=== PATIENT | male | born 1960 | race Caucasian/White ===

== ENCOUNTER 2019-10-08 14:12 | Emergency (ER) | payer MEDICARE, MEDICAID, SELFPAY ==
[2019-10-08 14:16] VITALS: BP 161/89; PULSE 76; RESP 18; TEMP 36.7; O2SAT 96; BMI 33.0
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
--- NOTE | 2019-10-08 14:44 | XR_ITS ---
WS: [id number] SHOULDER LEFT TECHNIQUE: 3 views of the left shoulder CLINICAL INFORMATION: trauma COMPARISON: None. FINDINGS: Moderate degenerative arthritis AC joint. Downsloping acromion. Rotator cuff anchor. No evidence of acute fracture dislocation. XR/XR shoulder LT min 2V* [id number] IMPRESSION: Moderate degenerative arthritis. No acute fractures.
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
[2019-10-08] MEDS: tetanus-dipt-pertussis 0.5 mL SDV IM (15:01)
[2019-10-08] MEDS: HYDROcodone-acetaminophen 7.5-325 mg Tablet 1 TAB PO (15:20)
[2019-10-08 15:33] LABS: Basophils % 0.4 %; Eosinophils # 0.1 10^3/uL (0.0-0.8); Eosinophils % 1.2 %; Hematocrit 48.6 % (42.0-52.0); Hemoglobin 16.3 g/dL (11.7-16.6); Lymphocytes # 3.5 10^3/uL (0.8-4.8); Lymphocytes % 33.5 %; Mean Corpuscular HGB Conc 33.5 g/dL (30.0-36.0); Mean Corpuscular Hemoglobin 27.5 pg (28.0-34.0); Mean Platelet Volume 10.6 fL (7.4-10.4); Monocytes # 0.9 10^3/uL (0.2-0.9); Monocytes % 9.1 %; Neutrophils # 5.74 10^3/uL (1.8-7.7); Neutrophils % 55.5 %; Nucleated Red Blood Cells % 0 %; Platelet Count 207 10^3/cmm (130-400); Red Blood Count 5.93 10^6/uL (4.1-5.3); Red Cell Distribution Width 13.6 % (12.1-15.1); White Blood Count 10.3 10^3/uL (4.0-10.0)
[2019-10-08 16:05] LABS: Anion Gap 13.2 (5-19); Blood Urea Nitrogen 11 mg/dL (6-20); Calcium 9.6 mg/dL (8.5-10.5); Carbon Dioxide 31 mmol/L (22-29); Chloride 96 mmol/L (98-107); Glomerular Filtration Rate 86.7 mL/min (90-130); Glucose 150 mg/dL (65-115); Osmolality Calculated 283 mOsm/kg (285-295); Potassium 3.2 mmol/L (3.5-5.1); Sodium 137 mmol/L (136-145)
[2019-10-08] MEDS: neomycin-poly-bacitracin oint 0.9 gm Pkt 1 APPLIC TOPICAL (16:55)
[2019-10-08 16:56] VITALS: BP 121/65; PULSE 73; RESP 18; O2SAT 98
== END 2019-10-08 16:58 | disposition home or self-care (01) ==
PROVIDERS: Emergency Provider Nurse Practitioner Family; PCP Internal Medicine
DX: S80.212A Abrasion, left knee, initial encounter (principal); S80.812A Abrasion, left lower leg, initial encounter; Z79.4 Long term (current) use of insulin; F17.210 Nicotine dependence, cigarettes, uncomplicated; W30.89XA Contact with other specified agricultural machinery, initial encounter; Z23 Encounter for immunization
CPT/HCPCS: 12345; 36415; 73030; 73562; 73590; 73630; 80048; 85025; 90471; 90715; 99282; 99283

== ENCOUNTER → 2020-09-05 13:15 | Outpatient (BNVA) | payer MEDICARE, MEDICAID, SELFPAY | PROVIDERS: PCP Internal Medicine; Visit Provider Podiatrist Foot & Ankle Surgery | DX: M79.673 Pain in unspecified foot (principal); S90.851A Superficial foreign body, right foot, initial encounter; X58.XXXA Exposure to other specified factors, initial encounter; I73.9 Peripheral vascular disease, unspecified; E11.42 Type 2 diabetes mellitus with diabetic polyneuropathy | CPT/HCPCS: 73630 ==

== ENCOUNTER 2020-10-10 07:59 | Outpatient (CLI) | payer MEDICARE, MEDICAID, SELFPAY ==
--- NOTE | 2020-10-10 08:11 | CT_ITS ---
WS: [id number] LDCT LUNG CANCER SCREENING HISTORY: NICOTINE Dependence, cigarettes TECHNIQUE: Axial imaging performed from the apices to 1 cm below the costophrenic angles. Coronal and sagittal reformats are submitted with axial MIP series. All CT scans at [facility] use at least one of these dose optimization techniques: automated exposure control; mA and/or kV adjustment per patient size (includes targeted exams where dose is matched to clinical indication); or iterativ e reconstruction. DLP: 54.58 mGy.cm DIvol: 1.58 mGy COMPARISON: 03/13/2017 Diagnostic quality: Satisfactory Lung Nodules: No nodule, mass or intrabronchial lesion. Lungs: Hyperexpanded lungs from emphysema. Linear areas of atelectasis at the lingula and lung bases. Heart: Normal size heart. Calcification noted on the mitral annular valve plane. No effusion. Other findings: Dense RIGHT hilar and subcarinal calcified lymph nodes. There are artery is dilated t o 3.8 cm. Mild atherosclerosis aorta. CT/CT lung screening [id number] IMPRESSION: LUNG-RADS: 1-Negative FOLLOW UP: 12 Month: Continue annual screening with LDCT OTHER FINDINGS (S MODIFIER): None.
== END 2020-10-10 08:00 | disposition home or self-care (01) ==
LOC: CT 08:03
PROVIDERS: PCP Internal Medicine; Visit Provider Internal Medicine
DX: Z12.2 Encounter for screening for malignant neoplasm of respiratory organs (principal); F17.200 Nicotine dependence, unspecified, uncomplicated
CPT/HCPCS: 71271

== ENCOUNTER → 2021-09-19 07:59 | Outpatient (BNVA) | payer MEDICARE, MEDICAID, SELFPAY | PROVIDERS: PCP Internal Medicine; Visit Provider Podiatrist Foot & Ankle Surgery | DX: E11.42 Type 2 diabetes mellitus with diabetic polyneuropathy (principal); Q82.8 Other specified congenital malformations of skin; L60.3 Nail dystrophy; L84 Corns and callosities; I73.9 Peripheral vascular disease, unspecified; M21.41 Flat foot [pes planus] (acquired), right foot; M21.42 Flat foot [pes planus] (acquired), left foot; Z79.4 Long term (current) use of insulin | CPT/HCPCS: 11721; 17110 ==

== ENCOUNTER → 2022-01-02 08:39 | Outpatient (BNVA) | payer MEDICARE, MEDICAID, SELFPAY | PROVIDERS: PCP Internal Medicine; Visit Provider Podiatrist Foot & Ankle Surgery | DX: E11.8 Type 2 diabetes mellitus with unspecified complications (principal); I73.9 Peripheral vascular disease, unspecified; E11.42 Type 2 diabetes mellitus with diabetic polyneuropathy; L60.3 Nail dystrophy; L84 Corns and callosities; Q82.8 Other specified congenital malformations of skin; Z79.4 Long term (current) use of insulin | CPT/HCPCS: 11721; 17110 ==

== ENCOUNTER 2022-02-09 08:45 | Outpatient (CLI) | payer MEDICARE, MEDICAID, SELFPAY ==
--- NOTE | 2022-02-09 08:50 | CT_ITS ---
WS: [id number] LDCT LUNG CANCER SCREENING HISTORY: NICOTINE DEPENDENCE,CIGARETTES TECHNIQUE: Axial imaging performed from the apices to 1 cm below the costophrenic angles. Coronal and sagittal reformats are submitted with axial MIP series. All CT scans at [facility] use at least one of these dose optimization techniques: automated exposure control; mA and/or kV adjustment per patient size (includes targeted exams where dose is matched to clinical indication); or iterativ e reconstruction. DLP: 81.77 mGy.cm DIvol: Mean CTDIvol: 1.60 (mGy) COMPARISON: 10/10/2020 Diagnostic quality: Satisfactory Lung Nodules: No pulmonary nodules or endobronchial lesions. Lungs: Chronic emphysema and mild dependent changes or scarring at the lung bases. Heart: Normal size heart. Heavy calcification along the mitral annular valve plane. Other findings: Benign heavily calcified hilar lymph nodes. Mild atherosclerotic plaque in the paez ry arteries. Thoracolumbar scoliosis. Mild pulmonary dilatation. CT/CT lung screening [id number] IMPRESSION: LUNG-RADS: 1-Negative FOLLOW UP: 12 Month: Continue annual screening with LDCT OTHER FINDINGS (S MODIFIER): None.
== END 2022-02-09 08:46 | disposition home or self-care (01) ==
LOC: RAD 08:45
PROVIDERS: PCP Internal Medicine; Visit Provider Internal Medicine
DX: Z12.2 Encounter for screening for malignant neoplasm of respiratory organs (principal); F17.210 Nicotine dependence, cigarettes, uncomplicated
CPT/HCPCS: 71271

== ENCOUNTER → 2022-03-13 09:00 | Outpatient (BNVA) | payer MEDICARE, MEDICAID, SELFPAY | PROVIDERS: PCP Internal Medicine; Visit Provider Podiatrist Foot & Ankle Surgery | DX: I73.9 Peripheral vascular disease, unspecified (principal); E11.42 Type 2 diabetes mellitus with diabetic polyneuropathy; L60.3 Nail dystrophy; L84 Corns and callosities; Q82.8 Other specified congenital malformations of skin; Z79.4 Long term (current) use of insulin | CPT/HCPCS: 11721; 17110 ==

== ENCOUNTER → 2022-05-15 14:50 | Outpatient (BNVA) | payer MEDICARE, MEDICAID, SELFPAY | PROVIDERS: PCP Internal Medicine; Visit Provider Podiatrist Foot & Ankle Surgery | DX: I73.9 Peripheral vascular disease, unspecified (principal); E11.42 Type 2 diabetes mellitus with diabetic polyneuropathy; Q82.8 Other specified congenital malformations of skin; Z79.4 Long term (current) use of insulin | CPT/HCPCS: 99213 ==

== ENCOUNTER → 2022-08-14 13:53 | Outpatient (BNVA) | payer MEDICARE, MEDICAID, SELFPAY | PROVIDERS: PCP Internal Medicine; Visit Provider Podiatrist Foot & Ankle Surgery | DX: I73.9 Peripheral vascular disease, unspecified (principal); E11.42 Type 2 diabetes mellitus with diabetic polyneuropathy; L60.3 Nail dystrophy; Q82.8 Other specified congenital malformations of skin; Z79.4 Long term (current) use of insulin | CPT/HCPCS: 11721; 17110 ==

== ENCOUNTER 2022-09-09 15:59 | Emergency (ER) | payer MEDICARE, MEDICAID, SELFPAY ==
[2022-09-09 16:45] VITALS: BP 157/73; PULSE 65; RESP 14; TEMP 36.9; O2SAT 96; BMI 33.0
[2022-09-09 20:17] LABS: Basophils # 0.1 10^3/uL (0.0-0.1); Basophils % 0.5 %; Eosinophils # 0.2 10^3/uL (0.0-0.8); Eosinophils % 1.8 %; Hematocrit 48.2 % (42.0-52.0); Hemoglobin 16.3 g/dL (11.7-16.6); Lymphocytes # 4.1 10^3/uL (0.8-4.8); Lymphocytes % 32.7 %; Mean Corpuscular HGB Conc 33.8 g/dL (30.0-36.0); Mean Corpuscular Hemoglobin 26.8 pg (28.0-34.0); Mean Corpuscular Volume 79.3 fl (80-94); Mean Platelet Volume 10.9 fL (7.4-10.4); Monocytes % 8.1 %; Neutrophils # 7.05 10^3/uL (1.8-7.7); Neutrophils % 56.7 %; Nucleated Red Blood Cells % 0 %; Platelet Count 233 10^3/cmm (130-400); Red Blood Count 6.08 10^6/uL (4.1-5.3); Red Cell Distribution Width 13.2 % (12.1-15.1); White Blood Count 12.4 10^3/uL (4.0-10.0)
[2022-09-09 20:35] LABS: Alanine Aminotransferase 20 U/L (0-41); Albumin Level 3.6 g/dL (3.5-5.2); Alkaline Phosphatase 96 U/L (40-130); Anion Gap 15.4 (5-19); Aspartate Amino Transferase 11 U/L (0-40); Blood Urea Nitrogen 11 mg/dL (8-23); Calcium 9.6 mg/dL (8.5-10.5); Carbon Dioxide 31 mmol/L (22-29); Chloride 92 mmol/L (98-107); Globulin 3.7 g/dL (1.3-4.6); Glomerular Filtration Rate 98.3 mL/min (90-130); Glucose 286 mg/dL (65-115); Osmolality Calculated 290 mOsm/kg (285-295); Potassium 3.4 mmol/L (3.5-5.1); Sodium 135 mmol/L (136-145); Total Bilirubin 0.8 mg/dL (0.15-1.2); Total Protein 7.3 g/dL (6.6-8.7)
--- NOTE | 2022-09-09 20:36 | CTR_ITS ---
PROCEDURE INFORMATION: Exam: CT Abdomen And Pelvis With Contrast Exam date and time: 09/09/2022 9:00 PM Age: 61 years old Clinical indication: Abdominal pain; Generalized; Prior surgery; Surgery date: 6+ months; Surgery type: RT femoral anders; Patient HX: C/O diffuse abd pain with constipation. ; Additional info: Constipation, diffuse abd pain TECHNIQUE: Imaging protocol: Computed tomography of the abdomen and pelvis with contrast. Radiation optimization: All CT scans at this facility use at least one of these dose optimization techniques: automated exposure control; mA and/or kV adjustment per patient size (includes targeted exams where dose is matched to clinical indication); or iterative reconstruction. Contrast material: OMNI 350; Contrast volume: 100 ml; Contrast route: INTRAVENOUS (IV); REPORTING DATA: Count of CT and Cardiac NM exams in prior 12 months: This patient has received [address] and 0 known cardiac nuclear medicine studies in the 12 months prior to the current study. COMPARISON: CT chest abdpel w/*[id number] 03/13/2017 10:40 AM RADIATION DOSE METRICS: Total DLP (mGy-cm): 935.88 FINDINGS: Lungs: Left base atelectasis. Heart: Mitral annulus calcifications. Liver: Focal fatty infiltration in the left liver lobe. Hypodensity in the right lobe is too small to characterize but is most likely a cyst. No suspicious nodule. Gallbladder and bile ducts: Normal. No calcified stones. No ductal dilation. Pancreas: Mild parenchymal edema is suspected in the pancreatic head. The body and tail are normal. No peripancreatic stranding or fluid. Spleen: Normal. No splenomegaly. Adrenal glands: Normal. No mass. Kidneys and ureters: 4.3 cm inhomogenous enhancing mass in the superior anterior left kidney. Bilateral renal cysts, Hounsfield units less than 20. No hydronephrosis or calculus. Stomach and bowel: Unremarkable. No obstruction. No mucosal thickening. Appendix: The appendix is visualized and is normal. Intraperitoneal space: Unremarkable. No free air. No significant fluid collection. Vasculature: Mild arterial calcifications. No aneurysm. Lymph nodes: Unremarkable. No enlarged lymph nodes. Urinary bladder: Mild wall thickening in the urinary bladder is most likely related to nondistention. Reproductive: Coarse calcifications in the prostate. Bones/joints: Degenerative changes and scoliosis of the spine. No acute fracture. No destructive lesion. Intramedullary anders with metal plate and screws in the right femur. Soft tissues: Small fat containing umbilical hernia. CT/CT abdomen pelvis w con* [id number] IMPRESSION: 1. 4.3 cm inhomogenous enhancing left renal mass. This is highly suspicious for renal cell carcinoma. No evidence for renal vein invasion. 2. Possible mild parenchymal edema in the pancreatic head. Mild pancreatitis is not excluded. Clinical correlation recommended. COMMENTS: Consistent with the [employer]'s Incidental Findings Committee white paper (J Am Tobias Radiol 2018): Any incidental renal lesion less than 1 cm or classified as too small to characterize, or any incidental cystic renal lesion characterized as simple-appearing, is likely benign. No follow-up imaging is recommended for these lesions per consensus recommendations based on imaging criteria.
[2022-09-09 20:45] LABS: Lipase 460 U/L (13-60)
--- NOTE | 2022-09-09 20:54 | ED_ITS ---
HPI - Abdominal Pain General: Chief Complaint: Abdominal Pain Stated Complaint: Pain in abdomin Time Seen by Provider: 09/09/22 20:35 History of Present Illness: 61-year-old male patient comes in today with abdominal discomfort, feeling of constipation, nausea with vomiting. Patient states that every time he eats something he becomes sick to his stomach and throws up. Patient is able to hold fluids down. Patient states for the last 3 weeks he has had these persistent symptoms. Patient has had no abdominal surgeries. Patient has a history of COPD, diabetes mellitus, and hypertension. Patient appears nontoxic and in mild pain. Patient reports no blood in vomit or stool. Patient reports no fever. Patient states that he is use mag citrate and a fleets enema for bowel movement which returned water each time. Have some relief in discomfort at that time. Associated Symptoms: Reports constipation, nausea and vomiting; Denies fever(s) Review of Systems General: Reports: 10 or more systems reviewed and unremarkable except in HPI and below Const: Denies: fever(s) Card: Denies: chest pain Resp: Denies: dyspnea GI: Reports: abdominal pain, nausea, vomiting and constipation : Denies: difficulty urinating Musc: Denies: neck pain or back pain Skin/Breast: Denies: rash PFSH ED PFSH: Medical History COPD (chronic obstructive pulmonary disease) Diabetes mellitus Hypertension Family History Other Diabetes Social History Smoking and tobacco status: never smoked Alcohol intake: never Household members: significant other Current occupational status: unemployed and disabled Physical Exam Const: COMMON NORMALS: alert HENMT: COMMON NORMALS: normocephalic HEAD & SCALP: normocephalic Neck/C-Spine: COMMON NORMALS: full ROM Resp: COMMON NORMALS: normal respiratory effort and clear to auscultation bilaterally AUSCULTATION: clear to auscultation bilaterally Cardio: COMMON NORMALS: regular rate and regular rhythm RATE: regular rate RHYTHM: regular rhythm GI: COMMON NORMALS: Soft to palpation AUSCULTATION: Yes normoactive bowel sounds PALPATION: Yes Soft to palpation and Yes Tenderness to palpation present (GI) (Epigastric) : BLADDER/KIDNEY EXAM: Yes CVA tenderness on the right Back/Pelvis: GENERAL BACK: Yes CVA tenderness Extremity: COMMON NORMALS: no pedal edema Neuro: SENSORIUM/ORIENTATION: Yes alert Skin: COMMON NORMALS: turgor normal GENERAL SKIN EXAM: turgor normal Course Vital Signs: Vital signs: Vital Signs Temperature 98.5 F 09/09/22 16:45 Pulse Rate 66 09/09/22 21:59 Respiratory Rate 18 09/09/22 21:59 Blood Pressure 136/75 09/09/22 21:59 Pulse Oximetry 91 09/09/22 21:59 Oxygen Delivery Me thod Room Air 09/09/22 21:16 MDM - Abdominal Pain Medical Decision Making 61-year-old male patient comes in today for complaints of abdominal discomfort and nausea and vomiting when eating food. On exam patient appears nontoxic. Pa tient appears in mild to moderate pain. Abdomen soft with some epigastric tenderness. Bowel sounds are present. Skin is warm and dry. Vital signs are normal except for some mild elevation in blood pressure. Differential diagnosis includes but not limited to gallbladder disease, pancreatitis, bowel obstruction, diabetic gastroparesis, renal calculi, tumor or mass. Laboratory values was remarkable for elevated lipase at 460. Patient's other labs were very similar to prior exam. Patient was given 1 L of IV fluids for concerns of dehydration related to his nausea and vomiting. Patient was also given 100 mcg of fentanyl, 4 mg of ondansetron for his nausea and vomiting and pain. CT of th e abdomen noted some mild edema of the pancreatic head suggesting a mild pancreatitis. There was also a inhomogenous enhancing left renal mass possible suggestion for renal carcinoma. I reviewed this with patient with recommendations for follow-up with primary care regarding the abnormality. I re viewed with patient the recommendations for pancreatitis treatment and need for follow-up or return to the ER. Patient reported understanding and agreed to plan. Patient was discharged free of pain and discomfort and able to tolerate fluids. Lab Data 09/09/22 19:58 09/09/22 19:58 Labs/Radiology: Radiology Impressions Abdomen/Pelvis CT 09/09/22 20:36 IMPRESSION: 1. 4.3 cm inhomogenous enhancing left renal mass. This is highly suspicious for renal cell carcinoma. No evidence for renal vein invasion. 2. Possible mild parenchymal edema in the pancreatic head. Mild pancreatitis is not excluded. Clinical correlation recommended. COMMENTS: Consistent with the [employer]'s Incidental Findings Committee white paper (J Am Tobias Radiol 2018): Any incidental renal lesion less than 1 cm or classified as too small to characterize, or any incidental cystic renal lesion characterized as simple-appearing, is likely benign. No follow-up imaging is recommended for these lesions per consensus recommendations based on imaging criteria. ADDENDUM: 09/09/222136 THIS REPORT CONTAINS FINDINGS THAT MAY BE CRITICAL TO PATIENT CARE. The findings were verbally communicated via telephone conference with BEAU BRANHAM at 9:35 PM CDT on 09/09/2022. The findings were acknowledged and understood. Laboratory Results WBC 12.4 10^3/uL (4.0-10.0) H 09/09/22 19:58 RBC 6.08 10^6/uL (4.1-5.3) H 09/09/22 19:58 Hgb 16.3 g/dL (11.7-16.6) 09/09/22 19:58 Hct 48.2 % (42.0-52.0) 09/09/22 19:58 MCV 79.3 fl (80-94) L 09/09/22 19:58 MCH 26.8 pg (28.0-34.0) L 09/09/22 19:58 MCHC 33.8 g/dL (30.0-36.0) 09/09/22 19:58 RDW 13.2 % (12.1-15.1) 09/09/22 19:58 Plt Count 233 10^3/cmm (130-400) 09/09/22 19:58 MPV 10.9 fL (7.4-10.4) H 09/09/22 19:58 Neut % (Auto) 56.7 % 09/09/22 19:58 Lymph % (Auto) 32.7 % 09/09/22 19:58 [place] % (Auto) 8.1 % 09/09/22 19:58 Eos % (Auto) 1.8 % 09/09/22 19:58 Baso % (Auto) 0.5 % 09/09/22 19:58 Neut # (Auto) 7.05 10^3/uL (1.8-7.7) 09/09/22 19:58 Lymph # (Auto) 4.1 10^3/uL (0.8-4.8) 09/09/22 19:58 [place] # (Auto) 1.0 10^3/uL (0.2-0.9) H 09/09/22 19:58 Eos # (Auto) 0.2 10^3/uL (0.0-0.8) 09/09/22 19:58 Baso # (Auto) 0.1 10^3/uL (0.0-0.1) 09/09/22 19:58 Nucleated RBC % (auto) 0 % 09/09/22 19:58 Nucleated RBCs # 0.0 /100WBC 09/09/22 19:58 Sodium 135 mmol/L (136-145) L 09/09/22 19:58 Potassium 3.4 mmol/L (3.5-5.1) L 09/09/22 19:58 Chloride 92 mmol/L (98-107) L 09/09/22 19:58 Carbon Dioxide 31 mmol/L (22-29) H 09/09/22 19:58 Anion Gap 15.4 (5-19) 09/09/22 19:58 BUN 11 mg/dL (8-23) 09/09/22 19:58 Creatinine 0.8 mg/dL (0.7-1.2) 09/09/22 19:58 GFR Calculation 98.3 mL/min (90-130) 09/09/22 19:58 Glucose 286 mg/dL (65-115) H 09/09/22 19:58 Calculated Osmolality 290 mOsm/kg (285-295) 09/09/22 19:58 Calcium 9.6 mg/dL (8.5-10.5) 09/09/22 19:58 Total Bilirubin 0.8 mg/dL (0.15-1.2) 09/09/22 19:58 AST 11 U/L (0-40) 09/09/22 19:58 ALT 20 U/L (0-41) 09/09/22 19:58 Alkaline Phosphatase 96 U/L (40-130) 09/09/22 19:58 Total Protein 7.3 g/dL (6.6-8.7) 09/09/22 19:58 Albumin 3.6 g/dL (3.5-5.2) 09/09/22 19:58 Globulin 3.7 g/dL (1.3-4.6) 09/09/22 19:58 Triglycerides 151 mg/dL (0-150) H 09/09/22 19:58 Lipase 460 U/L (13-60) H 09/09/22 19:58 Discharge Plan Discharge Patient Disposition: Home Clinical Impression: Abnormal finding on diagnostic imaging of right kidney Acute pancreatitis Qualifiers: Pancreatitis type: idiopathic Acute pancreatitis complication: no infection or necrosis Qualified Code(s): K85.00 - Idiopathic acute pancreatitis without necrosis or infection Condition: Stable Prescriptions: New ondansetron 4 mg tablet,disintegrating 4 mg PO Q8H PRN (Reason: nausea and vomiting) Qty: 12 0RF hydrocodone-acetaminophen 5-325 mg tablet 1 tab PO Q6H PRN (Reason: pain (scale score 7-10)) Qty: 20 0RF No Action hydrocodone-acetaminophen 5-325 mg tablet 1 tab PO Q6H PRN (Reason: Pain) baclofen 20 mg tablet 20 mg PO Q6H PRN (Reason: Pain) amlodipine [Norvasc] 5 mg tablet 5 mg PO DAILY atenolol-chlorthalidone 100-25 mg tablet 1 tab PO DAILY fluticasone propion-salmeterol 100-50 mcg/dose blister with device 1 ea INHALATION BID (DME) diabetic shoes with 3 inserts See Rx Instructions .Route .MEDSUPPLY Qty: 1 0RF Rx Instructions: As directed (DME) Diabetic shoes See Rx Instructions .ROUTE .MEDSUPPLY Qty: 1 0RF Rx Instructions: With 3 pairs of inserts, by [employer] Novolog FlexPen U-100 Insulin 100 unit/mL (3 mL) Insulin Pen See Rx Instructions .ROUTE .COMPLEX Rx Instructions: 5 unit subcutaneously IN THE MORNING/ 8 UNITS subcutaneously IN THE EVENING Tresiba FlexTouch U-100 100 unit/mL (3 mL) Insulin Pen 38 unit SUBCUT DAILY hydrocodone-acetaminophen 5-325 mg tablet 1 tab PO Q8H PRN (Reason: pain) Qty: 14 0RF Discharge Orders: Discharge ED (Routine); Ordered 09/09/22 Ordered By: Beau Branham Referrals: Fariha Hill MD [Primary Care Provider] - Discharge Diet: Advance as tolerated Discharge Activity: Resume usual activity Patient Instructions: Pancreatitis (ED), Opioid Safety, Pain Management Activity Restrictions/Additional Instructions: Follow-up with primary care in 2 to 3 days for recheck. Clear liquid diets until abdominal pain improves. Then increase diet to a bland diet such as bananas, rice, apples, toast, boiled chicken or other bland foods. Follow-up with primary care regarding abnormality of kidney on the CT scan. Return to ER for worsening symptoms such as increasing nausea and vomiting, uncontrolled abdominal pain, blood in vomit or stool or fever greater than 100.4. Coding Level of Care Code ED Cement Sack Breaker for Clinton Herrera
[2022-09-09] MEDS: sodium chloride 0.9% 1,000 ML 999 ML IV (20:56)
[2022-09-09] MEDS: iohexol 350 mg/mL 500 mL Btl (per mL) IV (21:01)
[2022-09-09 21:09] VITALS: RESP 16
[2022-09-09] MEDS: fentaNYL 50 mcg/mL INJ 2mL 100 MCG IVP (21:09)
[2022-09-09] MEDS: metoclopramide 5 mg/mL SDV 2 mL 10 MG IVP (21:09)
[2022-09-09 21:16] VITALS: BP 174/87; PULSE 66; RESP 15; O2SAT 94
[2022-09-09 21:19] LABS: Triglycerides 151 mg/dL (0-150)
[2022-09-09 21:59] VITALS: BP 136/75; PULSE 66; RESP 18; O2SAT 91
--- NOTE | 2022-09-10 09:06 | DCPLANNER ---
commercial center manager had message to speak with patient about scheduling a follow up appointment with primary care. commercial center manager called patient, unable to speak with patient at this time, a voicemail was left for patient to return case finisher phone call.
== END 2022-09-09 22:00 | disposition home or self-care (01) ==
PROVIDERS: Emergency Medicine; Emergency Provider Nurse Practitioner Family; PCP Internal Medicine
DX: K85.00 Idiopathic acute pancreatitis without necrosis or infection (principal); R93.5 Abnormal findings on diagnostic imaging of other abdominal regions, including retroperitoneum; J44.9 Chronic obstructive pulmonary disease, unspecified; E11.9 Type 2 diabetes mellitus without complications; I10 Essential (primary) hypertension
CPT/HCPCS: 36415; 74177; 80053; 83690; 84478; 85025; 96374; 96375; 99285; J2765; J3010; J7030; Q9967

== ENCOUNTER 2022-09-26 08:34 | Outpatient (CLI) | payer MEDICARE, MEDICAID, SELFPAY ==
--- NOTE | 2022-09-26 08:46 | US_ITS ---
WS: [id number] RIGHT UPPER QUADRANT ULTRASOUND HISTORY: RUQ ABDOMINAL PAIN COMPARISON: CT abdomen 09/09/2022 Liver: 20.2 cm in length. Moderately enlarged liver with no bile duct dilatation. Portal Vein: Normal hepatopetal flow with monophasic waveform. Gallbladder: Normally distended gallbladder with no stones or wall thickening. CBD: 0.3 cm Pancreas: Pancreas appears slightly larger and edematous as compared to the recent CT. Correlate for possible progression of acute pancreatitis. Right kidney: 13.7 cm in length. Normal size. Cystic mass superior pole measures 5.3 x 5.3 cm. Aorta and IVC: Unremarkable abdominal aorta and IVC. No ascites. US/US abdomen limited [id number] IMPRESSION: 1. Moderate hepatic enlargement. No mass. 2. Negative gallbladder. 3. Pancreas appears slightly larger and more edematous as compared to the rece nt CT of 09/09/2022. Correlate for possible progression of mild acute pancreatit is previously described. No pseudocyst. 4. RIGHT renal cyst.
== END 2022-09-26 08:35 | disposition home or self-care (01) ==
LOC: RAD 08:37
PROVIDERS: PCP Internal Medicine; Visit Provider Internal Medicine
DX: R10.11 Right upper quadrant pain (principal); R16.0 Hepatomegaly, not elsewhere classified; N28.1 Cyst of kidney, acquired
CPT/HCPCS: 76705

== ENCOUNTER → 2022-10-23 10:15 | Outpatient (BNVA) | payer MEDICARE, MEDICAID, SELFPAY | PROVIDERS: PCP Internal Medicine; Referring Provider Internal Medicine; Visit Provider Surgery | DX: Z12.11 Encounter for screening for malignant neoplasm of colon (principal) | CPT/HCPCS: 99024; 99203 ==

== ENCOUNTER → 2022-12-11 07:41 | Outpatient (BNVA) | payer MEDICARE, MEDICAID, SELFPAY | PROVIDERS: PCP Internal Medicine; Visit Provider Podiatrist Foot & Ankle Surgery | DX: I73.9 Peripheral vascular disease, unspecified (principal); E11.42 Type 2 diabetes mellitus with diabetic polyneuropathy; Q82.8 Other specified congenital malformations of skin; L60.3 Nail dystrophy; Z79.4 Long term (current) use of insulin | CPT/HCPCS: 11721; 17110 ==

== ENCOUNTER 2022-12-14 06:58 | Day surgery (SDC) | payer MEDICARE, MEDICAID, SELFPAY ==
[2022-12-14 07:12] VITALS: BP 126/82; PULSE 61; RESP 18; TEMP 36.4; O2SAT 98; BMI 33.0
[2022-12-14] MEDS: sodium chloride 0.9% 1,000 ML 30 ML IV (07:22)
[2022-12-14 07:24] LABS: Glucose Point of Care 295 mg/dL (70-110)
--- NOTE | 2022-12-14 07:26 | ANES.PREANE2 ---
Pre-Anesthetic Assessment Height/Weight: Height 1.85 m Weight 113.398 kg Temp Pulse Resp BP Pulse Ox O2 Del Method 97.5 F L 61 18 126/82 98 Room Air 12/14/22 07:12 12/14/22 07:12 12/14/22 07:12 12/14/22 07:12 12/14/22 07:12 12/14/22 07:12 Preop Diagnosis: screening Operation Date: 12/14/22 08:00 Proposed Procedures p Colonoscopy 55615,Z12.11(Not Applicable) - Demetris Macias, DO Was Beta Saurav taken within 24 hours: Yes Was Clonidine taken within 24 hours: N/A Last intake: Intake Last Liquid Date 12/13/22 Last Liquid Time 22:00 Last Solid Date 12/12/22 Last Solid Time 18:00 Social Tobacco and No alcohol last cig a few minutes ago pack(s) per day Exam alert, oriented x 3, clear to auscultation bilaterally and regular rate & rhythm Airway Submandibular: within normal limits Cervical ROM: within normal limits Mallampati: Class I Comments: Comments: missing many History/ROS No significant history except as noted Pulmonary Chronic Obstructive Pulmonary Disease smoker CV/HEM Hypertension None reported Hepatic None reported GI Gastroesophageal Reflux Disease Metabolic Diabetes Mellitus [facility] [place] None reported Neuropsych None reported Anesthetic Plan ASA status: 3 Anesthesia: MAC Risk of > 500 ml blood loss (7ml/kg in children): Yes, adequate IV access and fluids planned Medications/Allergies Home Medications Medication Instructions Recorded Confirmed Last Taken Type atenolol 100 mg-chlorthalidone 25 1 tab PO DAILY 06/23/19 12/14/22 12/14/22 05:00 History mg tablet baclofen 20 mg tablet 20 mg PO Q6H PRN Pain 06/23/19 12/14/22 1 Week Ago History ~12/05/22 fluticasone 100 mcg-salmeterol 50 1 ea inhalation BID 06/23/19 12/14/22 12/12/22 History mcg/dose blistr powdr for inhalation hydrocodone 5 mg-acetaminophen 325 1 tab PO Q6H PRN Pain 06/23/19 12/14/22 1 Week Ago History mg tablet ~12/05/22 insulin aspart U-100 100 unit/mL See Rx Instructions .Route .COMPLEX 10/08/19 12/14/22 12/12/22 History (3 mL) subcutaneous pen (Novolog FlexPen U-100 Insulin aspart) insulin degludec 100 unit/mL (3 38 unit SUBCUT DAILY 10/08/19 12/14/22 12/11/22 History mL) subcutaneous pen (Tresiba FlexTouch U-100 insulin) Diabetic shoes #1 ea 06/07/20 12/14/22 Unknown Rx diabetic shoes with 3 inserts #1 ea 04/04/21 12/14/22 Unknown Rx ondansetron 4 mg disintegrating 4 mg PO Q8H PRN nausea and 09/09/22 12/14/22 Unknown Rx tablet vomiting #12 tabs lisinopril 20 mg tablet 20 mg PO DAILY 12/14/22 12/14/22 12/14/22 05:00 History Allergies Allergy/AdvReac Type Severity Reaction Status Date / Time No Known Allergies Allergy Verified 12/14/22 07:12 Current Medications Generic Name Dose Route Start Last Admin Trade Name Freq PRN Reason Stop Dose Admin Sodium Chloride 1,000 mls @ 30 mls/hr 12/14/22 07:00 12/14/22 07:22 Sodium Chloride 0.9% IV 12/15/22 06:59 30 mls/hr .Q24H BLAIR Administration PFSH Anesthesia Medical History COPD (chronic obstructive pulmonary disease) Diabetes mellitus Hypertension Surgical History History of surgery on arm Hx of colonoscopy less than 5 years, found polyps Family History Other Diabetes Social History Smoking and tobacco/nicotine status: never used tobacco/nicotine Alcohol intake: never Household members: significant other Current occupational status: unemployed and disabled Data Anesthesia Cardiac Studies: No Data to Display
--- NOTE | 2022-12-14 08:20 | PM.HP ---
Providers/Chief Complaint Primary Care Provider: Fariha Hill MD Chief Complaint: Z12.11 History of Present Illness Hever Kendrick is a 62 year old male Review of Systems General: Reports: 10 or more systems reviewed and unremarkable except in HPI and below Medications/Allergies Home Medications Medication Instructions Recorded Confirmed Last Taken Type atenolol 100 mg-chlorthalidone 25 1 tab PO DAILY 06/23/19 12/14/22 12/14/22 05:00 History mg tablet baclofen 20 mg tablet 20 mg PO Q6H PRN Pain 06/23/19 12/14/22 1 Week Ago History ~12/05/22 fluticasone 100 mcg-salmeterol 50 1 ea inhalation BID 06/23/19 12/14/22 12/12/22 History mcg/dose blistr powdr for inhalation hydrocodone 5 mg-acetaminophen 325 1 tab PO Q6H PRN Pain 06/23/19 12/14/22 1 Week Ago History mg tablet ~12/05/22 insulin aspart U-100 100 unit/mL See Rx Instructions .Route .COMPLEX 10/08/19 12/14/22 12/12/22 History (3 mL) subcutaneous pen (Novolog FlexPen U-100 Insulin aspart) insulin degludec 100 unit/mL (3 38 unit SUBCUT DAILY 10/08/19 12/14/22 12/11/22 History mL) subcutaneous pen (Tresiba FlexTouch U-100 insulin) Diabetic shoes #1 ea 06/07/20 12/14/22 Unknown Rx diabetic shoes with 3 inserts #1 ea 04/04/21 12/14/22 Unknown Rx ondansetron 4 mg disintegrating 4 mg PO Q8H PRN nausea and 09/09/22 12/14/22 Unknown Rx tablet vomiting #12 tabs lisinopril 20 mg tablet 20 mg PO DAILY 12/14/22 12/14/22 12/14/22 05:00 History Allergies Allergy/AdvReac Type Severity Reaction Status Date / Time No Known Allergies Allergy Verified 12/14/22 07:12 PFSH Acute PFSH: Medical History COPD (chronic obstructive pulmonary disease) Diabetes mellitus Hypertension Surgical History History of surgery on arm Hx of colonoscopy less than 5 years, found polyps Family History Other Diabetes Social History Smoking and tobacco/nicotine status: never used tobacco/nicotine Alcohol intake: never Household members: significant other Current occupational status: unemployed and disabled Vitals/I&O/Wt Last Vital Signs Temp 97.5 F L 12/14/22 07:12 Pulse 61 12/14/22 07:12 Resp 18 12/14/22 07:12 BP 126/82 12/14/22 07:12 Pulse Ox 98 12/14/22 07:12 O2 Del Method Room Air 12/14/22 07:12 Weight last 48 hrs Weight 250 lb A&P Assessment and plan (1) Colon cancer screening: Plan Colonoscopy Attestations Medical Necessity Statement*: Home Coding Level of Care Code Acute Code for Chg Fwd Diagnoses Colon cancer screening Z12.11
[2022-12-14 08:45] VITALS: BP 108/58; PULSE 58; RESP 18; TEMP 36.6; O2SAT 94
--- NOTE | 2022-12-14 08:56 | ANE.PACU2 ---
Inpatient post-anesthesia follow up: Airway intact: Yes Vital signs: Temperature 97.9 F Pulse Rate 58 Respiratory Rate 18 Blood Pressure 108/58 Pulse Oximetry 94 Oxygen Delivery Me thod Room Air Oxygen Flow Rate Fraction of Inspir ed Oxygen Hydration adequate: Yes Nausea and vomiting: No Pain level: 1 Mental status: Baseline
[2022-12-14 08:59] VITALS: BP 120/67; PULSE 58; RESP 18; O2SAT 94
[2022-12-14 09:15] VITALS: BP 125/71; PULSE 60; RESP 18; O2SAT 96
== END 2022-12-14 09:31 | disposition home or self-care (01) ==
PROVIDERS: PCP Internal Medicine; Visit Provider Surgery
PROC: 0DJD8ZZ Inspection of Lower Intestinal Tract, Via Natural or Artificial Opening Endoscopic (ICD-10-PCS; CPT 45378; principal; 2022-12-14 08:00)
DX: Z12.11 Encounter for screening for malignant neoplasm of colon (principal); D12.3 Benign neoplasm of transverse colon; K64.8 Other hemorrhoids; J44.9 Chronic obstructive pulmonary disease, unspecified; E11.9 Type 2 diabetes mellitus without complications; Z79.84 Long term (current) use of oral hypoglycemic drugs; I10 Essential (primary) hypertension; F17.210 Nicotine dependence, cigarettes, uncomplicated; K21.9 Gastro-esophageal reflux disease without esophagitis; Z79.4 Long term (current) use of insulin
CPT/HCPCS: 36416; 45385; 82962; 88305; J2704; J7030

== ENCOUNTER → 2022-12-27 10:44 | Outpatient (BNVA) | payer MEDICARE, MEDICAID, SELFPAY | PROVIDERS: PCP Internal Medicine; Visit Provider Surgery | DX: R22.32 Localized swelling, mass and lump, left upper limb | CPT/HCPCS: 99214 ==

== ENCOUNTER → 2023-01-01 11:38 | Outpatient (BNVA) | payer MEDICARE, MEDICAID, SELFPAY | PROVIDERS: PCP Internal Medicine; Visit Provider Surgery | DX: D17.22 Benign lipomatous neoplasm of skin and subcutaneous tissue of left arm (principal) | CPT/HCPCS: 11400; 88307; 99214 ==

== ENCOUNTER → 2023-01-15 09:48 | Outpatient (BNVA) | payer MEDICARE, MEDICAID, SELFPAY | PROVIDERS: PCP Internal Medicine; Visit Provider Surgery | DX: R22.32 Localized swelling, mass and lump, left upper limb (principal) | CPT/HCPCS: 99213 ==

== ENCOUNTER → 2023-03-19 10:41 | Outpatient (BNVA) | payer MEDICARE, MEDICAID, SELFPAY | PROVIDERS: PCP Internal Medicine; Visit Provider Podiatrist Foot & Ankle Surgery | DX: I73.9 Peripheral vascular disease, unspecified (principal); E11.42 Type 2 diabetes mellitus with diabetic polyneuropathy; Q82.8 Other specified congenital malformations of skin; L60.3 Nail dystrophy; Z79.4 Long term (current) use of insulin | CPT/HCPCS: 11721; 17110 ==

== ENCOUNTER → 2023-06-11 07:50 | Outpatient (BNVA) | payer MEDICARE, MEDICAID, SELFPAY | PROVIDERS: PCP Internal Medicine; Visit Provider Podiatrist Foot & Ankle Surgery | DX: L60.3 Nail dystrophy (principal); I73.9 Peripheral vascular disease, unspecified; E11.42 Type 2 diabetes mellitus with diabetic polyneuropathy; Q82.8 Other specified congenital malformations of skin; Z79.4 Long term (current) use of insulin | CPT/HCPCS: 11721; 17110 ==

== ENCOUNTER 2023-06-12 07:47 | Outpatient (CLI) | payer MEDICARE, MEDICAID, SELFPAY ==
--- NOTE | 2023-06-12 07:54 | CT_ITS ---
WS: [id number] LDCT LUNG CANCER SCREENING HISTORY: HX OF TOBACCO USE TECHNIQUE: Axial imaging performed from the apices to 1 cm below the costophrenic angles. Coronal and sagittal reformats are submitted with axial MIP series. All CT scans at [facility] use at least one of these dose optimization techniques: automated exposure control; mA and/or kV adjustment per patient size (includes targeted exams where dose is matched to clinical indication); or iterativ e reconstruction. DLP: 119.18 mGy.cm DIvol: Mean CTDIvol: 2.70 (mGy) COMPARISON: 02/09/2022 Diagnostic quality: Satisfactory Lungs: Mild pulmonary hyperexpansion and emphysema. No pulmonary mass or nodule. There is a tiny micr onodules subpleural LEFT upper lobe. No endobronchial lesions. Heart: Normal size heart with no pericardial effusion.. Other findings: No adenopathy. Densely calcified RIGHT hilar lymph node is benign. Mild atheroscleros is aorta. No adrenal mass. Superior pole RIGHT renal cyst measures 4.9 cm. There is a new soft tissue mass in the medial LEFT upper abdomen extending along the diaphragmatic pendleton rface in the crura. Inseparable from the spleen. This mass was not present on the prior CT from 2022. Patient does have a known renal cell neoplasm. No history of prior surgery. There is new soft t issue mass is incompletely included on this examination but measures 4.2 x 5.1 cm. IMPRESSION: CT/CT lung screening [id number] LUNG-RADS: 1S-Negative with Significant Findings FOLLOW UP: 12 Month: Continue annual screening with LDCT OTHER FINDINGS (S MODIFIER): New soft tissue mass in the medial LEFT upper abdo men contacting the diaphragm/crura and medial spleen. Patient has a known LEFT renal neoplasm which was described on prior CTs. No history of prior surgery. N ew soft tissue mass may be extension of the known renal cell neoplasm. This sof t tissue mass was not present on the study of 09/09/2022. Consider additional ev aluation, recommend CT abdomen and pelvis with IV and oral contrast. Progressio n of renal neoplasm. No history of surgery provided.
== END 2023-06-12 07:48 | disposition home or self-care (01) ==
LOC: RAD 07:47
PROVIDERS: PCP Internal Medicine; Visit Provider Internal Medicine
DX: Z87.891 Personal history of nicotine dependence (principal); Z12.2 Encounter for screening for malignant neoplasm of respiratory organs
CPT/HCPCS: 71271

== ENCOUNTER → 2023-09-10 08:12 | Outpatient (BNVA) | payer MEDICARE, MEDICAID, SELFPAY | PROVIDERS: PCP Internal Medicine; Visit Provider Podiatrist Foot & Ankle Surgery | DX: L60.3 Nail dystrophy (principal); I73.9 Peripheral vascular disease, unspecified; E11.42 Type 2 diabetes mellitus with diabetic polyneuropathy; Q82.8 Other specified congenital malformations of skin; Z79.4 Long term (current) use of insulin | CPT/HCPCS: 11721; 17110 ==

== ENCOUNTER → 2023-12-10 07:56 | Outpatient (BNVA) | payer MEDICARE, MEDICAID, SELFPAY | PROVIDERS: PCP Internal Medicine; Visit Provider Podiatrist Foot & Ankle Surgery | DX: L60.3 Nail dystrophy (principal); I73.9 Peripheral vascular disease, unspecified; E11.42 Type 2 diabetes mellitus with diabetic polyneuropathy; Q82.8 Other specified congenital malformations of skin; R03.0 Elevated blood-pressure reading, without diagnosis of hypertension; Z79.4 Long term (current) use of insulin | CPT/HCPCS: 11055; 11721 ==

== ENCOUNTER → 2024-03-10 08:01 | Outpatient (BNVA) | payer MEDICARE, MEDICAID, SELFPAY | PROVIDERS: PCP Internal Medicine; Visit Provider Podiatrist Foot & Ankle Surgery | DX: L60.3 Nail dystrophy (principal); I73.9 Peripheral vascular disease, unspecified; E11.42 Type 2 diabetes mellitus with diabetic polyneuropathy; Q82.8 Other specified congenital malformations of skin; R03.0 Elevated blood-pressure reading, without diagnosis of hypertension; Z79.4 Long term (current) use of insulin | CPT/HCPCS: 11721; 17110 ==

== ENCOUNTER 2024-06-24 09:24 | Outpatient (CLI) | payer MEDICARE, MEDICAID, SELFPAY ==
--- NOTE | 2024-06-24 09:29 | CT_ITS ---
WS: [id number] CT ABDOMEN AND PELVIS WITH CONTRAST HISTORY: HX OF RENAL CARCINOMA TECHNIQUE: Imaging performed of the abdomen and pelvis with IV contrast. Single phase imaging of the abdomen. Coronal and sagittal reformats are submitted. All CT scans at [facility] use at least one of these dose optimization techniques: automated exposure control; mA and/or kV adjustment per patient size (includes targeted exams where dose is matched to clinical indication); or iterative reconstruction. IV CONTRAST: Omnipaque 350; 100 mL IV. Oral contrast: No DLP: 761.95 mGy.cm COMPARISON: 09/09/2022 Lower thorax: Lung bases are clear. Heart is normal size. No hiatal hernia. Liver/biliary system: Normal size with no intrahepatic dilatation. Gallbladder: Normal. No gallstones or wall thickening. No pericholecystic fluid. Pancreas: Normal size pancreas and pancreatic duct. No adjacent inflammation. Spleen: Normal size spleen. No mass or infarct. Adrenal glands: Normal RIGHT adrenal gland. Very minimal nodularity LEFT adrenal gland. Right kidney: Normal size kidney. Simple cyst upper pole measures 5.7 x 6.1 cm. There is an additional indeterminate 8 mm cortical mass in the lower pole which has increased in size since 09/09/2022. Left kidney: Interval nephrectomy. Aorta: Mild atherosclerosis with no aneurysm. Lymphadenopathy: Very small benign-appearing lymph nodes at the GE junction. No mesenteric or retroperitoneal adenopathy. Free fluid: None. GI tract: Stomach is well distended with fluid. No GI tract obstruction. Normal appendix. Abdominal wall: Ventral abdominal wall hernia contains fat only. Pelvis: No free fluid or adenopathy within the pelvis. Bones: Advanced degenerative scoliosis and spondylosis in the lumbar spine. No destructive bone lesions. Orthopedic hardware in the proximal RIGHT femur. CT/CT abdomen pelvis w con* [id number] IMPRESSION: 1. Status post LEFT nephrectomy since the prior examination. No recurrent mass or metastatic deposits at the renal bed. 2. 8 mm cortical hypoattenuating nodule lower pole RIGHT kidney has slightly i ncreased in size since 09/09/2022. Differential includes complex cyst or very ea rly renal neoplasm. Consider MRI evaluation of the kidneys with and without con trast or short-term CT follow-up in 3 months. 3. No ascites or adenopathy. 4. Fat-containing inguinal canals.
[2024-06-24 10:27] LABS: Blood Urea Nitrogen 27 mg/dL (8-23)
[2024-06-24 10:28] LABS: Glomerular Filtration Rate 43.9 mL/min (90-130)
[2024-06-24] MEDS: iohexol 350 mg/mL 500 mL Btl (per mL) IV (10:57)
== END 2024-06-24 09:25 | disposition home or self-care (01) ==
PROVIDERS: PCP Internal Medicine; Visit Provider Nurse Practitioner Family
DX: Z85.528 Personal history of other malignant neoplasm of kidney (principal); R10.9 Unspecified abdominal pain; Z98.890 Other specified postprocedural states; R93.421 Abnormal radiologic findings on diagnostic imaging of right kidney; N28.1 Cyst of kidney, acquired; I70.0 Atherosclerosis of aorta; R59.0 Localized enlarged lymph nodes; K43.9 Ventral hernia without obstruction or gangrene; M41.86 Other forms of scoliosis, lumbar region; M47.896 Other spondylosis, lumbar region; Z96.89 Presence of other specified functional implants
CPT/HCPCS: 74177; 82565; 84520

== ENCOUNTER → 2024-06-29 08:33 | Outpatient (BNVA) | payer MEDICARE, MEDICAID, SELFPAY | PROVIDERS: PCP Internal Medicine; Visit Provider Podiatrist Foot & Ankle Surgery | DX: E11.42 Type 2 diabetes mellitus with diabetic polyneuropathy (principal); L60.3 Nail dystrophy; E11.8 Type 2 diabetes mellitus with unspecified complications; I73.9 Peripheral vascular disease, unspecified; M21.611 Bunion of right foot; M21.612 Bunion of left foot; M21.41 Flat foot [pes planus] (acquired), right foot; M21.42 Flat foot [pes planus] (acquired), left foot; Z79.4 Long term (current) use of insulin | CPT/HCPCS: 11721; 99213 ==

== ENCOUNTER 2024-07-15 08:24 | Outpatient (CLI) | payer MEDICARE, MEDICAID, SELFPAY ==
--- NOTE | 2024-07-15 08:28 | MR_ITS ---
WS: [id number] MRI ABDOMEN WITH AND WITHOUT CONTRAST. COMPARISON: CT 09/09/2022, 06/24/2024 Multiplanar, multisequence imaging is performed with and without contrast. MultiHance 19 mL IV. History: Status post LEFT nephrectomy for renal cell cancer. There is a new hypoattenuating nodule lower pole RIGHT kidney, indeterminate. Status post LEFT nephrectomy. No recurrent mass or adenopathy at the renal bed. RIGHT kidney: 14.5 cm in length. The indeterminate low-attenuation nodule from the lower pole of the RIGHT kidney is identified measuring 8 x 5 mm. There is cortical mass is of increased signal intensity on the T2 sequences and does not enhance. There is a larger cyst from the superior pole measuring 5.5 x 6.3 cm with no enhancement. There are additional scattered very tiny cortical nodules throughout the kidney which do not enhance. There is no renal obstruction. No ascites or retroperitoneal adenopathy. Liver is normal size. There is a tiny cortical subcapsular cyst measuring about 3 mm, RIGHT lobe. No intrahepatic mass or duct dilatation. Gallbladder, spleen and pancreas are negative. No common bile duct dilatation. Normal aorta. No soft tissue masses or bone lesions. MR/MR abdomen wo/w con* [id number] IMPRESSION: 1. Recently described indeterminate mass from the lower pole RIGHT kidney does not enhance. Consistent with a benign cortical cyst. 2. Multiple cortical cysts in the RIGHT kidney. No solid mass. 3. LEFT nephrectomy. No mass in the renal bed. 4. No ascites or adenopathy.
--- NOTE | 2024-07-15 08:44 | MR_ITS ---
WS: [id number] MRI LUMBAR SPINE NONCONTRAST HISTORY: Low back pain COMPARISON: None available. TECHNIQUE: Sagittal and axial multisequence imaging is submitted. Straightening of the normal cervical lordosis. Focal kyphosis upper thoracic spine with scoliosis. Mild anterior wedging of T10, T11 and T12. Mild S-shaped curvature lumbar spine with increase in lordosis. Very small amount of marrow edema in the LEFT lateral L1, L2 and L3 vertebral bodies. No fractures. Severe disc space narrowing and desiccation from L1-2 through L4-5. Endplate osteophytosis. RIGHT foraminal nerve root sleeve diverticulum T11-12. Conus terminates normally at L1. T12-L1: Asymmetric annular disc bulging and osteophytosis. Bilateral facet joint arthropathy. Large LEFT subarticular recess and proximal foraminal disc protrusion contacts the LEFT lateral thecal sac and the traversing LEFT L1 nerve root. Disc protrusion extends slightly below the disc level. Mild central with moderate bilateral foraminal stenosis, LEFT greater than RIGHT. L1-L2: Diffuse annular disc bulging, osteophytic ridging, facet and ligamentum flavum hypertrophy. Intermediate signal in the LEFT L2 subarticular recess may be a small extruded disc or disc fragment. This is in contact with the LEFT exiting L1 nerve root. Moderate to severe LEFT foraminal stenosis due to disc and osteophyte and facet arthritis. There is additional mild central and bilateral subarticular recess stenosis. L2-L3: Marked osteophytic ridging with severe facet joint arthropathy and ligamentum flavum hypertrophy. Central disc protrusion. Disc osteophyte complex is bilateral in the foramina. Osteophyte encroachment upon the posterior thecal sac. Severe central and bilateral subarticular recess and moderate foraminal stenosis. L3-L4: Diffuse asymmetric disc bulging and osteophytic ridging. Central disc protrusion. Disc osteophyte complexes in the foramina. Facet arthritis. Severe central and bilateral subarticular recess stenosis. Disc asymmetrically extends to the RIGHT. Moderate bilateral foraminal stenosis, RIGHT greater than LEFT. L4-L5: Diffuse annular disc bulging with osteophytic ridging and severe facet arthritis. Central disc protrusion. Bilateral foraminal disc osteophytes, greater on the RIGHT. Severe central and bilateral subarticular recess and RIGHT foraminal stenosis. Mild LEFT foraminal stenosis. L5-S1: Diffuse annular disc bulging with a central disc protrusion and annular fissure. Facet arthritis. Mild bilateral foraminal stenosis. LEFT kidney is absent. Incompletely visualized cyst from the RIGHT kidney measures 3.8 x 4.6 cm. Partial fatty atrophy of the RIGHT psoas muscle. MR/MR lumbar spine wo con* [id number] IMPRESSION: 1. Advanced degenerative changes throughout the lumbar spine with degenerative rotary scoliosis. 2. Multilevel areas of significant central, subarticular recess and foraminal stenosis due to combination of disc disease with protrusions, facet arthropathy and osteophytes. 3. L4-5: Severe central, bilateral subarticular recess and moderate bilateral foraminal stenosis, RIGHT greater than LEFT. 4. T12-L1: Large LEFT subarticular recess and proximal foraminal disc protrusi on extending slightly below the disc level. There is significant contact on the traversing LEFT L1 nerve root. Mild central stenosis with moderate bilateral f oraminal stenosis, LEFT greater than RIGHT. 5. L1-2: Intermediate signal in the LEFT L2 subarticular recess contacting the exiting L1 nerve root. This is probably an extruded disc fragment. Moderate to severe LEFT foraminal stenosis at L1-2 with mild central and bilateral subarti cular recess stenosis. 6. L2-3: Severe central and bilateral subarticular recess and moderate foramin al stenosis as above. 7. L3-4: Severe central and bilateral subarticular recess stenosis and moderat e foraminal stenosis. 8. L5-S1: Mild bilateral foraminal stenosis. 9. Chronic mild anterior wedging of T10, T11 and T12.
[2024-07-15] MEDS: gadobenate dimeglumine 20 mL vial 19 ML IV (09:54)
== END 2024-07-15 08:25 | disposition home or self-care (01) ==
PROVIDERS: PCP Internal Medicine; Visit Provider Internal Medicine
DX: M51.17 Intervertebral disc disorders with radiculopathy, lumbosacral region (principal); M47.896 Other spondylosis, lumbar region; M41.86 Other forms of scoliosis, lumbar region; M48.061 Spinal stenosis, lumbar region without neurogenic claudication; M51.25 Other intervertebral disc displacement, thoracolumbar region; M48.05 Spinal stenosis, thoracolumbar region; M48.07 Spinal stenosis, lumbosacral region; M48.54XD Collapsed vertebra, not elsewhere classified, thoracic region, subsequent encounter for fracture with routine healing; M41.84 Other forms of scoliosis, thoracic region; M43.8X6 Other specified deforming dorsopathies, lumbar region; M51.369 Other intervertebral disc degeneration, lumbar region without mention of lumbar back pain or lower extremity pain; M25.78 Osteophyte, vertebrae; M47.895 Other spondylosis, thoracolumbar region; M24.28 Disorder of ligament, vertebrae; M51.26 Other intervertebral disc displacement, lumbar region; M51.379 Other intervertebral disc degeneration, lumbosacral region without mention of lumbar back pain or lower extremity pain; M51.27 Other intervertebral disc displacement, lumbosacral region; M47.897 Other spondylosis, lumbosacral region; M62.58 Muscle wasting and atrophy, not elsewhere classified, other site; N28.1 Cyst of kidney, acquired; R93.421 Abnormal radiologic findings on diagnostic imaging of right kidney; Z98.890 Other specified postprocedural states
CPT/HCPCS: 72148; 74183

== ENCOUNTER → 2024-09-01 08:25 | Outpatient (BNVA) | payer MEDICARE, MEDICAID, SELFPAY | PROVIDERS: PCP Internal Medicine; Visit Provider Podiatrist Foot & Ankle Surgery | DX: E11.42 Type 2 diabetes mellitus with diabetic polyneuropathy (principal); L60.3 Nail dystrophy; I73.9 Peripheral vascular disease, unspecified; M21.611 Bunion of right foot; M21.612 Bunion of left foot; M21.41 Flat foot [pes planus] (acquired), right foot; M21.42 Flat foot [pes planus] (acquired), left foot; L97.512 Non-pressure chronic ulcer of other part of right foot with fat layer exposed; Z79.4 Long term (current) use of insulin | CPT/HCPCS: 11721 ==

== ENCOUNTER → 2024-09-15 09:21 | Outpatient (BNVA) | payer MEDICARE, MEDICAID, SELFPAY | PROVIDERS: PCP Internal Medicine; Visit Provider Podiatrist Foot & Ankle Surgery | DX: E11.42 Type 2 diabetes mellitus with diabetic polyneuropathy (principal); L60.3 Nail dystrophy; M21.611 Bunion of right foot; M21.612 Bunion of left foot; M21.41 Flat foot [pes planus] (acquired), right foot; M21.42 Flat foot [pes planus] (acquired), left foot; I73.9 Peripheral vascular disease, unspecified; E11.621 Type 2 diabetes mellitus with foot ulcer; L97.512 Non-pressure chronic ulcer of other part of right foot with fat layer exposed; Z79.4 Long term (current) use of insulin | CPT/HCPCS: 99213 ==

== ENCOUNTER 2024-10-21 13:40 | Outpatient (CLI) | payer MEDICARE, MEDICAID, SELFPAY ==
--- NOTE | 2024-10-21 13:45 | CTR_ITS ---
PROCEDURE INFORMATION: Exam: CT Abdomen And Pelvis Without Contrast Exam date and time: 10/21/2024 1:58 PM Age: 64 years old Clinical indication: Abdominal pain; Generalized; Prior surgery; Surgery date: 6+ months; Surgery type: Left kidney; Continued left lower quadrant sharp pain since April; Additional info: Chronic kidney disease, stage 3a TECHNIQUE: Imaging protocol: Computed tomography of the abdomen and pelvis without contrast. Radiation optimization: All CT scans at this facility use at least one of these dose optimization techniques: automated exposure control; mA and/or kV adjustment per patient size (includes targeted exams where dose is matched to clinical indication); or iterative reconstruction. COMPARISON: MR abdomen wo/w con* [id number] 07/15/2024 9:36 AM RADIATION DOSE METRICS: Total DLP (mGy-cm): 705.08 FINDINGS: Lungs: The imaged lung bases are clear. Heart: Mitral annular calcifications are seen. Esophagus: The imaged esophagus is within normal limits. Liver: Hepatic morphology is normal. No surface nodularity. No solid hepatic lesions. Gallbladder and biliary ducts: Layering hyperattenuation within the gallbladder lumen may represent biliary sludge versus tiny stones. No intra or extrahepatic bile duct dilatation is noted. Pancreas: The pancreas is normal without ductal dilatation. Spleen: The spleen is normal. A splenule is present. Adrenal glands: The adrenal glands are normal. Kidneys and ureters: Redemonstrated proteinaceous/hemorrhagic cysts of the right kidney. Stable Bosniak 1 simple cyst of the right kidney. No solid renal lesion within the limitations of this noncontrast evaluation. No hydronephrosis is present. Postsurgical changes from left nephrectomy are noted. Within the left surgical bed, there is an area of ovoid shaped fat density (series 3, images [id number]) with some internal soft tissue attenuation. Stomach and bowel: The stomach is within normal limits. The large and small bowel are unremarkable. Bowel is normal in course and caliber without evidence of wall thickening or obstruction. Appendix: The appendix is normal. Intraperitoneal space: No free pelvic fluid. Vasculature: Mild atherosclerosis of the aorta and its major branching vessels is noted. Lymph nodes: No abdominal lymphadenopathy is noted. No pelvic or inguinal lymphadenopathy. Urinary bladder: Suspected pseudo wall thickening of the urinary bladder secondary to underdistention. Reproductive: The prostate is within normal limits. Bones/joints: Degenerative joint and disc disease is seen in the imaged spine. Partially imaged internal fixation of the right hip is noted. Soft tissues: The soft tissues are within normal limits. CT/CT kidney stone [id number] IMPRESSION: 1. Postsurgical changes from left nephrectomy. Ovoid fat density in the surgical bed with some internal soft tissue attenuation as above. Findings may represent fat necrosis. This appears stable from the prior exam dated 07/15/2024. Continued attention is warranted to exclude residual/recurrent disease. Consider follow-up MRI abdomen with without contrast in 3-6 months. 2. Suggested biliary sludge versus tiny cholelithiasis.
== END 2024-10-21 13:41 | disposition home or self-care (01) ==
LOC: RAD 13:41
PROVIDERS: PCP Internal Medicine; Visit Provider Internal Medicine
DX: N18.31 Chronic kidney disease, stage 3a (principal); I34.0 Nonrheumatic mitral (valve) insufficiency; I70.0 Atherosclerosis of aorta; M51.369 Other intervertebral disc degeneration, lumbar region without mention of lumbar back pain or lower extremity pain; Z90.5 Acquired absence of kidney; M79.89 Other specified soft tissue disorders; N28.1 Cyst of kidney, acquired
CPT/HCPCS: 74176

== ENCOUNTER → 2024-10-27 08:49 | Outpatient (BNVA) | payer MEDICARE, MEDICAID, SELFPAY | PROVIDERS: PCP Internal Medicine; Visit Provider Podiatrist Foot & Ankle Surgery | DX: M21.611 Bunion of right foot (principal); M21.612 Bunion of left foot; M21.41 Flat foot [pes planus] (acquired), right foot; M21.42 Flat foot [pes planus] (acquired), left foot; I73.9 Peripheral vascular disease, unspecified; E11.42 Type 2 diabetes mellitus with diabetic polyneuropathy; L97.512 Non-pressure chronic ulcer of other part of right foot with fat layer exposed; I10 Essential (primary) hypertension; Z79.4 Long term (current) use of insulin | CPT/HCPCS: 99213 ==

== ENCOUNTER → 2024-12-15 08:44 | Outpatient (BNVA) | payer MEDICARE, MEDICAID, SELFPAY | PROVIDERS: PCP Internal Medicine; Visit Provider Podiatrist Foot & Ankle Surgery | DX: E11.42 Type 2 diabetes mellitus with diabetic polyneuropathy (principal); L60.3 Nail dystrophy; L84 Corns and callosities; M21.611 Bunion of right foot; M21.612 Bunion of left foot; M21.41 Flat foot [pes planus] (acquired), right foot; M21.42 Flat foot [pes planus] (acquired), left foot; I73.9 Peripheral vascular disease, unspecified; I10 Essential (primary) hypertension; Z79.4 Long term (current) use of insulin | CPT/HCPCS: 11055; 11721 ==

== ENCOUNTER → 2025-01-26 08:43 | Outpatient (BNVA) | payer MEDICARE, MEDICAID, SELFPAY | PROVIDERS: PCP Internal Medicine; Visit Provider Podiatrist Foot & Ankle Surgery | DX: M21.611 Bunion of right foot (principal); M21.612 Bunion of left foot; M21.41 Flat foot [pes planus] (acquired), right foot; M21.42 Flat foot [pes planus] (acquired), left foot; I73.9 Peripheral vascular disease, unspecified; E11.42 Type 2 diabetes mellitus with diabetic polyneuropathy; Z79.4 Long term (current) use of insulin | CPT/HCPCS: 99213 ==